=== PATIENT | male | born 1960 | race American Indian/Alaskan Native ===

== ENCOUNTER 2016-10-22 08:01 | Emergency (ER) | payer MEDICARE ==
[2016-10-22 08:21] VITALS: BP 107/62
[2016-10-22 09:10] LABS: Anion Gap 19 mmol/L; BUN/Creatinine Ratio 15.83; Blood Urea Nitrogen 19 mg/dL (9-20); Calcium 9.1 mg/dL (8.4-10.2); Carbon Dioxide 21 mmol/L (22-30); Chloride 104.2 mmol/L (98-107); Glucose 119 mg/dL (75-100); Potassium 4.2 mmol/L (3.6-5.0); Sodium 140 mmol/L (137-145)
[2016-10-22 09:38] LABS: Eosinophils % (Auto) 4.6 % (0.0-4.3); Hematocrit 46.3 % (35.5-45.6); Hemoglobin 14.9 gm/dl (11.8-15.2); Mean Corpuscular HGB Conc 32 % (32-34); Mean Corpuscular Hemoglobin 27 pg (28-32); Mean Corpuscular Volume 84 fl (84-94); Platelet Count 139 K/mm3 (140-440); Red Blood Count 5.49 M/mm3 (3.65-5.03); Red Cell Distribution Width 15.6 % (13.2-15.2); White Blood Count 6.2 K/mm3 (4.5-11.0)
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
== END 2016-10-23 02:45 | disposition left against medical advice (07) ==
LOC: ED 08:01
DX: R05 Cough (principal); R07.9 Chest pain, unspecified; M54.9 Dorsalgia, unspecified; Z53.21 Procedure and treatment not carried out due to patient leaving prior to being seen by health care provider
CPT/HCPCS: 36415; 71020; 80048; 84484; 85025; 93005; 93010